=== PATIENT | male | born 1995 | race Caucasian/White ===

== ENCOUNTER 2022-01-29 20:11 | Emergency (ER) | payer OTHER ==
[~2022-01-29] VITALS: Ht 177.8 cm; Wt 77.1 kg
--- NOTE | 2022-01-29 21:06 | NUR ---
BIBS. L ELBOW PAIN S/P HITTING IT ON THE SHOWER. HX SX BACK IN OCTOBER.C/O DRAINAGE WELL FROM WOUND. PATIENT ALERT AND ORIENTED X3. AMBULATORY WITH NON LABORED BREATHING IN BED 19 AWAITING MD PERRY.
--- NOTE | 2022-01-29 21:34 | NUR ---
BLOOD AND CULTURES COLLECETED AND SENT TO LAB
--- NOTE | 2022-01-29 21:34 | NUR ---
COVID SWAB DONE AND SENT TO LAB
[2022-01-29] MEDS ORDERED: CEFTRIAXONE 1GM BAG (ER ONLY) 50 ML IV ONE ×2 (21:35→22:00)
--- NOTE | 2022-01-29 21:35 | NUR ---
XRAY AT BEDSIDE
[2022-01-29] MEDS ORDERED: VANCOMYCIN 1 GM VIAL ONE (21:36)
[2022-01-29 21:51] LABS: BASOPHILS # (AUTO) 0.1 K/uL (0.0-0.2); BASOPHILS % (AUTO) 0.5 % (0.0-2.0); EOSINOPHILS % (AUTO) 0.8 % (0.0-6.0); HEMATOCRIT 42 % (39-51); HEMOGLOBIN 14.3 g/dL (13.5-17.5); LYMPHOCYTES # (AUTO) 2.5 K/uL (0.8-4.8); LYMPHOCYTES % (AUTO) 16.9 % (20.0-44.0); MEAN CORPUSCULAR HGB CONC 34 g/dl (31.0-36.0); MEAN CORPUSCULAR VOLUME 91 fL (80-96); MONOCYTES # (AUTO) 2.2 K/uL (0.1-1.30); MONOCYTES % (AUTO) 14.7 % (2.0-12.0); NEUTROPHILS % (AUTO) 67.1 % (43.0-81.0); PLATELET COUNT (AUTO) 551 K/uL (150-450); RED BLOOD CELL COUNT(AUTO) 4.65 MIL/uL (4.5-6.0); WHITE BLOOD COUNT (AUTO) 14.9 K/uL (4.3-11.0)
[2022-01-29] MEDS ORDERED: VANCOMYCIN 1 GM in IV D5W 250 ML IV ONE (22:00)
[2022-01-29 22:25] LABS: CALCIUM, SERUM 8.8 mg/dL (8.5-10.1); CREATININE 1.6 mg/dL (0.6-1.3); POTASSIUM 4.3 mmol/L (3.5-5.1)
[2022-01-29] MEDS ORDERED: IV NS 0.9% 1,000 ML BAG IV ONE (22:30)
[2022-01-29 22:32] LABS: ALBUMIN 3.9 g/dL (3.4-5.0); BILIRUBIN,DIRECT 0.1 mg/dL (0.0-0.2); BILIRUBIN,TOTAL 0.3 mg/dL (0.2-1.0); TOTAL PROTEIN, SERUM 8.1 g/dL (6.4-8.2)
--- NOTE | 2022-01-29 22:50 | NUR ---
SPOKE TO CM IN NEED OF FACESHEET FAXED OVER
--- NOTE | 2022-01-29 22:55 | NUR ---
CLINICALS FAXED OVER Addendum: 01/29/22 at 2255 by ALEX TO [facility]/ [facility] CM
--- NOTE | 2022-01-29 23:50 | NUR ---
FAXED COVID RESULTS TO [phone]
--- NOTE | 2022-01-30 00:45 | NUR ---
[facility] [phone]
--- NOTE | 2022-01-30 01:30 | NUR ---
FAXED CLINICALS TO [facility] AT [phone]
[2022-01-30] MEDS ORDERED: KETOROLAC TROMETHAMINE INJ 30 MG/ML VIAL ONE (01:51)
[2022-01-30] MEDS ORDERED: KETOROLAC TROMETHAMINE INJ 30 MG/ML VIAL IV ONE (02:00)
--- NOTE | 2022-01-30 02:04 | NUR ---
ACCORDING TO [facility] PT IS ACCEPTED AT [facility] BY DR CAMACHO. 922A. # FOR REPORT: [phone]. TRANSPORTATION AUTH # [id number] [facility] ETA: 90 MIN
--- NOTE | 2022-01-30 02:15 | NUR ---
report given to miguel angel fleming
--- NOTE | 2022-01-30 02:22 | NUR ---
CALLED INGE FOR CT AND CXR READ
[2022-01-30 04:12] VITALS: BP 141/32
--- NOTE | 2022-01-30 04:13 | NUR ---
[facility] ARRIVED FOR CUT OFF [facility]
== END 2022-01-30 04:46 | disposition short-term general hospital (02) ==
LOC: ER 20:15
DX: M71.122 Other infective bursitis, left elbow (principal); S52.125A Nondisplaced fracture of head of left radius, initial encounter for closed fracture; W22.01XA Walked into wall, initial encounter; Y93.E1 Activity, personal bathing and showering; Y92.89 Other specified places as the place of occurrence of the external cause; F19.10 Other psychoactive substance abuse, uncomplicated; E87.1 Hypo-osmolality and hyponatremia; D75.839 Thrombocytosis, unspecified; R79.82 Elevated C-reactive protein (CRP); N17.9 Acute kidney failure, unspecified; Z20.822 Contact with and (suspected) exposure to COVID-19
CPT/HCPCS: 36415; 71045; 73080; 73200; 80048; 80076; 83605; 84145; 84484; 85025; 85652; 85730; 86140; 87040 ×2; 87426; 93005; 96361; 96365; 96367; 96375; 99291; A6403; C9803; J0696; J1885; J3370; J7030 ×2; J7040